=== PATIENT | female | born 1995 | race Caucasian/White ===

== ENCOUNTER → 2018-08-11 | Outpatient (CLI) | payer BC | LOC: CAT 16:56 | DX: D49.2 Neoplasm of unspecified behavior of bone, soft tissue, and skin (principal) ==

== ENCOUNTER 2018-09-01 05:32 | Day surgery (SDC) | payer BC ==
[~2018-09-01] VITALS: Ht 167.6 cm; Wt 68.0 kg
[2018-09-01 15:51] VITALS: BP 124/74
--- NOTE | 2018-09-08 06:17 | O ---
[facility] [place] [place] [address] OPERATIVE REPORT Name: DIA GUERRA Room #: DEP [facility] M..#: [id number] Admission: 09/01/18 ������������������ Attend Phys: Martin Christina MD Discharge: 09/01/18 ������������������ Date of : [birth year] Report #: [id number] THIS REPORT FOR: //name// CC: BETTY Mantilla Physician staff Martin Christina DATE OF SERVICE: 09/01/2018 PREOPERATIVE DIAGNOSIS: Left orbital tumor. 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 PROCEDURE: Left transfrontal orbitotomy. SURGEONS: Martin Christina MD and Patrice Hay MD ANESTHESIA: General. COMPLICATIONS: None. INDICATIONS FOR SURGERY: This pleasant 23-year-old woman has a vascular mass in her medial inferior left orbit that displaces her globe. The mass is not definitively characteristic of any single clinical entity, but it is thought to most likely be a cavernous hemangioma. She presents today for excision of the lesion via transfrontal approach. Informed consent was obtained to include, but not limited to the potential risk for loss of vision, bleeding, infection, failure to improve the problem, the potential need for further surgery or treatment. Two surgeons were being used because of the complexity of the lesion, its uncertain histopathologic nature and the increased risk of comorbidity with the procedure itself in this area. DESCRIPTION OF PROCEDURE: The patient was taken to the operating room where general anesthesia was administered. The left medial orbit was then anesthetized transcutaneously and transconjunctivally with Xylocaine with epinephrine mixed with Marcaine and Wydase. The patient was subsequently prepped and draped in the usual sterile fashion. The CT was viewed directly prior to the patient being prepped. A curvilinear incision was outlined first and subsequently made in the medial aspect of the left lower lid in a relaxed skin tension line. Careful attention was made to ensure that the incision was shallow to allow access to the lesion, which was almost immediately apparent. Relatively, brisk bleeding ensued from the fine blood vessels scattered across the top of the lesion throughout the case. Both monopolar and bipolar cautery [address] [address] OPERATIVE REPORT Name: DIA GUERRA Room #: DEP [facility].R.#: [id number] Admission: 09/01/18 ������������������ Attend Phys: Martin Christina MD Discharge: 09/01/18 ������������������ Date of : [birth year] Report #: [id number] were used as necessary throughout the dissection. The lesion was then elevated as primarily blunt dissection was undertaken as much as possible to separate the lesion from the underlying lacrimal sac. The approach was made around the lesion. There were several times where it was very difficult to tell exactly where the lesion was and normal tissue was, but best decisions were made with the 2 surgeons both lending an opinion. The vasculature around the lesion was particularly rich, which made the dissection even more challenging. There were several times where the lesion itself had its capsule ruptured during the dissection and it appeared to deturge several times releasing a serous fluid. The lesion was dissected superiorly from the medial canthal tendon from the anterior and superior kian. It was also taken off more deeply in the superior orbit from the medial rectus muscle. The inferior oblique muscle was from the lesion superotemporally. As the lesion was drawn anteriorly, several connective tissue points of contact were identified, cauterized with the bipolar unit and subsequently cut. The lesion was delivered subsequently en bloc, although it had several tears in it and had significantly deturgesed teacher just throughout the procedure. The wound was then copiously irrigated and reinspected. A normal surrounding tissue appeared to fill in this space quite well with no evidence of the lesion still remaining. The incision was then closed with interrupted buried 6-0 Vicryl sutures deep. 6-0 plain gut sutures were used more superficially. The wound was then cleaned and dressed with erythromycin ointment. The patient subsequently transported to the recovery area having tolerated the procedure well with no anesthetic or operative complications being noted. ��������������������������������������������� <ELECTRONICALLY SIGNED> ���������������������������������������� By: Martin Christina MD ��������������������������������������������� 09/08/18 [id number] Martin Christina MD /nt
== END 2018-09-01 19:15 | disposition home or self-care (01) ==
LOC: OR 05:32 → TBA 05:32 → OR 12:02
DX: H05.89 Other disorders of orbit (principal); F17.210 Nicotine dependence, cigarettes, uncomplicated; Z98.890 Other specified postprocedural states; Z88.0 Allergy status to penicillin; Z88.8 Allergy status to other drugs, medicaments and biological substances; Z87.442 Personal history of urinary calculi
CPT/HCPCS: 50010; 50101; 50386; 50398; 51636; 56528; 56531; 57006; 62110; 62900; 70005

== ENCOUNTER → 2018-12-10 | Outpatient (CLI) | payer BC | LOC: MRI 09:59 | DX: D31.62 Benign neoplasm of unspecified site of left orbit (principal) ==